=== PATIENT | male | born 1975 | race Caucasian/White ===

== ENCOUNTER 2017-07-20 20:20 | Emergency (ER) | payer OTHER ==
[~2017-07-20] VITALS: Ht 180.3 cm; Wt 88.5 kg
[~2017-07-20 20:20] MED LIST: BACTRIM,SEPT1 TABLET PO; BISAC-EVAC10 MG PR; BISACODYL5 MG PO; CLEOCIN300 MG PO; COLACE100 MG PO; ENDOCET 5-3251 EACH PO; FAMOTIDINE20 MG PO; GABAPENTIN300 MG PO; HEPARIN SO5000 UNITS SC; HYDROCODON-ACE1 EAC7 PO; KEFLEX500 MG PO; MAG-AL PLUS SUS30 ML PO; MILK OF MAGNESI10 ML PO; MOTRIN600 MG PO; MOTRIN800 MG PO; NOHOMEMEDS; ONDANSETRON ODT4 MG PO; ONDANSETRON4 MG/2 ML IV; PERCOCET 5/31 TABLET PO; PROMETHAZI25 MG/1 M2 IM; PROMETHAZINE HC25 M1 PO; RISPERIDONE1 MG PO; RISPERIDONE3 MG PO; SENNA8.6 MG PO; SIMVASTATIN10 MG PO; SKELAXIN800 MG PO; TYLENOL REGULA325 MG PO; VENTOLIN HFA18 GM IH; ZITHROMAX Z-PA250 MG PO
[2017-07-20] MEDS ORDERED: MEDROL DOSEPAK4 MG PO (22:48)
[2017-07-20] MEDS ORDERED: NORCO 5/3251 TABLET PO (22:48)
[2017-07-20] MEDS ORDERED: FLEXERIL10 MG PO (22:51)
[2017-07-20 23:14] VITALS: BP 149/104
== END 2017-07-20 23:15 | disposition home or self-care (01) ==
LOC: EME 20:20
DX: M54.12 Radiculopathy, cervical region (principal); F17.200 Nicotine dependence, unspecified, uncomplicated
CPT/HCPCS: 72040; 73030; 99281; 99284; J7512

== ENCOUNTER 2017-08-30 18:25 | Emergency (ER) | payer OTHER ==
[~2017-08-30] VITALS: Ht 180.3 cm; Wt 85.3 kg
[~2017-08-30 18:25] MED LIST changes: +FLEXERIL10 MG PO; +MEDROL DOSEPAK4 MG PO; +NORCO 5/3251 TABLET PO
[2017-08-30 19:26] LABS: HEMATOCRIT 43.7 % (38.0-50.0); MCH 31.4 PG (29.0-34.0); MCHC 36.4 G/DL (30.0-36.0); MCV 86.4 FL (86-99); MEAN PLAT.VOLUME 8.4 uM^3 (9.0-12.4); PLATELET COUNT 239 K/uL (156-360); RBC DIS.WIDTH-CV 14.1 % (11.8-14.6); RBC DIS.WIDTH-SD 44.1 % (39-53); RED BLOOD COUNT 5.06 M/uL (4.00-5.50); WHITE BLOOD COUNT 10.1 K/uL (4.1-10.2)
[2017-08-30 19:37] LABS: CHLORIDE 107 mEq/L (99-109); POTASSIUM 3.9 mEq/L (3.7-5.4); SODIUM 141 mEq/L (136-147)
[2017-08-30 19:38] LABS: GLUCOSE 94 mg/dL (70-99)
[2017-08-30 19:40] LABS: ANION GAP 11 MEQ/L (2-14)
[2017-08-30 19:42] LABS: GFR ESTIMATE (CALCULATED) > 59 mL/min/
[2017-08-30 19:43] LABS: UREA NITROGEN (BUN) 6 mg/dL (9-23)
[2017-08-30 19:50] LABS: TROP-I INTERPRETATION NEGATIVE; TROPONIN-I < 0.01 ng/mL (0.0-0.30)
[2017-08-30] MEDS ORDERED: CITALOPRAM HBR40 MG PO (20:40)
[2017-08-30] MEDS ORDERED: SEROQUEL200 MG PO (20:41)
[2017-08-30] MEDS ORDERED: IBUPROFEN800 MG PO (20:42)
[2017-08-30 22:01] LABS: TROP-I INTERPRETATION NEGATIVE; TROPONIN-I < 0.01 ng/mL (0.0-0.30)
[2017-08-30 22:59] VITALS: BP 156/85
== END 2017-08-30 23:01 | disposition home or self-care (01) ==
LOC: EME 18:25
PROVIDERS: Physician Assistant
DX: R07.9 Chest pain, unspecified (principal); F17.200 Nicotine dependence, unspecified, uncomplicated; F41.9 Anxiety disorder, unspecified; F32.9 Major depressive disorder, single episode, unspecified
CPT/HCPCS: 71020; 80048; 84484; 85027; 93005; 99281; 99284

== ENCOUNTER 2017-09-11 22:51 | Emergency (ER) | payer OTHER ==
[~2017-09-11] VITALS: Ht 180.3 cm; Wt 87.5 kg
[~2017-09-11 22:51] MED LIST changes: +CITALOPRAM HBR40 MG PO; +IBUPROFEN800 MG PO; +SEROQUEL200 MG PO
[2017-09-11 22:56] VITALS: BP 138/109
[2017-09-12] MEDS ORDERED: PREDNISONE20 MG PO (00:12)
[2017-09-12] MEDS ORDERED: PEPCID20 MG PO (00:12)
== END 2017-09-12 00:50 | disposition home or self-care (01) ==
LOC: EME 22:51
DX: T78.40XA Allergy, unspecified, initial encounter (principal); L50.9 Urticaria, unspecified; F31.9 Bipolar disorder, unspecified; F20.9 Schizophrenia, unspecified; Z79.82 Long term (current) use of aspirin; Z88.5 Allergy status to narcotic agent; Z88.6 Allergy status to analgesic agent; F17.200 Nicotine dependence, unspecified, uncomplicated
CPT/HCPCS: 99281; 99284; J7512

== ENCOUNTER 2018-04-28 00:12 | Emergency (ER) | payer OTHER ==
[~2018-04-28] VITALS: Ht 180.3 cm; Wt 93.8 kg
[~2018-04-28 00:12] MED LIST changes: +PEPCID20 MG PO; +PREDNISONE20 MG PO
[2018-04-28] MEDS ORDERED: ZOFRAN ODT4 MG PO (00:56)
[2018-04-28] MEDS ORDERED: ZITHROMAX500 MG PO (00:56)
[2018-04-28] MEDS ORDERED: PREDNISONE20 MG PO (01:00)
[2018-04-28] MEDS ORDERED: TESSALON PERLE100 MG PO (01:00)
[2018-04-28] MEDS ORDERED: ZITHROMAX250 MG PO (01:00)
[2018-04-28] MEDS ORDERED: VENTOLIN HFA18 GM IH (01:00)
[2018-04-28 01:30] VITALS: BP 169/91
== END 2018-04-28 01:31 | disposition home or self-care (01) ==
LOC: EXP 00:12 → EME 00:12 → EXP 01:31
DX: J18.0 Bronchopneumonia, unspecified organism (principal); F17.200 Nicotine dependence, unspecified, uncomplicated; Z88.6 Allergy status to analgesic agent; Z88.5 Allergy status to narcotic agent
CPT/HCPCS: 99281; 99284; J7512